=== PATIENT | female | born 1960 | race Caucasian/White ===

== ENCOUNTER 2024-06-24 09:51 | Day surgery (SDC) | payer OTHER ==
[2024-06-23 08:23] VITALS: BMI 22.1
[2024-06-24] MEDS: LACTATED RINGERS 1,000 ML IV SCH (11:05)
[2024-06-24 11:06] VITALS: RESP 16; TEMP 98.3
[2024-06-24] MEDS: MIDAZOLAM 2 MG/2 ML VIAL IV ONE (11:14)
[2024-06-24] MEDS: IV FLUID CONTINUATION 1,000 ML IV ONE (11:17)
[2024-06-24] MEDS ORDERED: PROPOFOL 10 MG/ML 20 ML VIAL IV ONE (12:26)
--- NOTE | 2024-06-24 12:45 | P.PCN ---
Date of Procedure: 06/24/24 Procedure(s) Performed: BRIEF HISTORY: Patient is a 63-year-old pleasant pleasant white female scheduled for an elective colonoscopy as a part of evaluation of chronic diarrhea for the last 1 year duration. She was diagnosed with collagenous colitis in the past. Recently has been having 4-5 loose watery bowel movements daily. She also has family history of colon cancer diagnosed in her father at age 70. Her last colonoscopy was 6 years ago. PROCEDURE PERFORMED: Colonoscopy with random biopsies. PREOPERATIVE DIAGNOSIS: Chronic diarrhea/family history of colon cancer. IV sedation per Anesthesia. PROCEDURE: After informed consent was obtained, the patient, was brought into the endoscopy unit. IV sedation was administered by Anesthesia under continuous monitoring. Digital rectal examination was normal. Initially the Olympus CF-160 flexible video colonoscope was then inserted in the rectum, gradually advanced into the cecum without any difficulty. Careful examination was performed as the scope was gradually being withdrawn. Ileocecal valve and the appendiceal orifice were visualized and appeared normal. Prep was excellent. Mucosa of the cecum, diffuse erythema and biopsies were done from this area in the ascending colon there was some raised areas measuring between 1 to 2 cm in size with mild erythema suspicious for polyposis colitis and multiple biopsies were done from this area. Rest of the transverse colon, descending colon, sigmoid colon, and rectum appeared normal. Biopsies were done from the ascending and descending colon to rule out microscopic/collagenous colitis. Retroflexion was performed in the rectum and no lesions were seen. The patient tolerated the procedure well. IMPRESSION: Mild diffuse cecal erythema s/p multiple biopsies Some raised areas in the ascending colon measuring between 1 to 2 cm in size with patchy areas of erythema suspicious for colitis versus polyp s/p multiple biopsies Rest of the colon appeared normal RECOMMENDATIONS: Findings of this examination were discussed with the patient as well as her family. She was advised to follow-up with the biopsy results.. To be seen in the office in 2 weeks.
[2024-06-24 13:02] VITALS: BP 167/94; PULSE 87
== END 2024-06-24 13:44 | disposition home or self-care (01) ==
LOC: ORWHC2ENDO 09:51
PROVIDERS: ATTEND Internal Medicine Gastroenterology
DX: K52.9 Noninfective gastroenteritis and colitis, unspecified (principal); I10 Essential (primary) hypertension; Z79.899 Other long term (current) drug therapy; Z80.0 Family history of malignant neoplasm of digestive organs; Z88.8 Allergy status to other drugs, medicaments and biological substances
CPT/HCPCS: 45380; J2250; J2704; 88305; 88313